=== PATIENT | male | born 1950 | race Native Hawaiian/Other Pacific Islander ===

== ENCOUNTER 2022-11-01 19:46 | Emergency (ER) | payer OTHER ==
[~2022-11-01] VITALS: Ht 172.7 cm; Wt 96.6 kg
[2022-11-01 19:46] VITALS: TEMP 97.9
[2022-11-01 20:08] LABS: PLATELET COUNT 149 K/uL (142-355)
[2022-11-01 20:12] LABS: POTASSIUM 4.3 mmol/L (3.6-5.2)
[2022-11-01 21:40] VITALS: BP 175/80
[2022-11-02] MEDS ORDERED: CARDURA4 MG PO (09:10)
[2022-11-02] MEDS ORDERED: LOPRESSOR100 MG PO (09:11)
[2022-11-02] MEDS ORDERED: DIVA250T PO (09:12)
[2022-11-02] MEDS ORDERED: ALBUTEROL0.083 % INH (09:13)
[2022-11-02] MEDS ORDERED: HYDR5TAB9 PO (09:14)
[2022-11-02] MEDS ORDERED: FURO40TA93 PO (09:15)
[2022-11-02] MEDS ORDERED: LACTULOSE10 GM/15 M PO (09:15)
[2022-11-02] MEDS ORDERED: TAMS0.4C PO (09:16)
[2022-11-02] MEDS ORDERED: PREG75CA PO (09:16)
[2022-11-02] MEDS ORDERED: QUETIAPINE50 MG PO (09:17)
[2022-11-02] MEDS ORDERED: RISP0.5T2 PO (09:18)
[2022-11-02] MEDS ORDERED: HYDR25TA60 PO (09:18)
[2022-11-02] MEDS ORDERED: BENICAR40 MG PO (09:19)
[2022-11-02] MEDS ORDERED: ALLO300T23 PO (09:19)
[2022-11-02] MEDS ORDERED: TRICOR48 MG PO ×2 (09:20→09:21)
[2022-11-02] MEDS ORDERED: FERROUS SULF325 M1 PO (09:23)
[2022-11-02] MEDS ORDERED: ASPERCREME LIDOCA41 EX (09:23)
[2022-11-02] MEDS ORDERED: LACTOBACILLUS ACIDOP PO (09:25)
[2022-11-02] MEDS ORDERED: RENAL PO (09:25)
[2022-11-02] MEDS ORDERED: TRADJENTA5 M1 PO (09:26)
[2022-11-02] MEDS ORDERED: VITAMIN D50000 UNIT PO (09:27)
[2022-11-02] MEDS ORDERED: LIPITOR80 MG PO (09:28)
[2022-11-02] MEDS ORDERED: K-TAB20 MEQ PO (09:28)
[2022-11-02] MEDS ORDERED: ZOLOFT25 MG PO (09:29)
[2022-11-02] MEDS ORDERED: AMLODIPINE BESYLATE PO (09:29)
[2022-11-02] MEDS ORDERED: HUMALOG KW100 UNIT/M SC (09:31)
== END 2022-11-01 21:40 | disposition still patient (30) ==
LOC: ED 19:46
PROVIDERS: Emergency Medicine Emergency Medical Services
DX: F25.8 Other schizoaffective disorders (principal); Z11.52 Encounter for screening for COVID-19; Z04.6 Encounter for general psychiatric examination, requested by authority
CPT/HCPCS: 36415; 80053; 85027; 87635; 93005; 99283; U0003